=== PATIENT | female | born 1950 | race Caucasian/White ===

== ENCOUNTER 2017-06-10 15:59 | Emergency (ER) | payer MEDICARE, OTHER ==
--- NOTE | 2017-06-10 16:35 | ER Document Report ---
ED Medical Screen (RME) - General Chief Complaint: Leg Pain Stated Complaint: POSSIBLE BLOOD CLOT Time Seen by Provider: 06/10/17 16:28 Notes: 66-year-old female patient with essentially no medical history has been on airplane flights and car travel recently. She noticed a few days ago that her left proximal anterior lateral leg just below the knee and the lateral leg began hurting. She feels like the calf is swelling and there is some redness. Brief exam shows the calf to be quite soft, no tenderness to palpate deep into the calf posteriorly. Some tenderness to the left lateral calf and very tender proximally over the anterior medial tibial region. There is no erythema, no increased heat. We will plan to check lab work prior to ordering venous Doppler, as the exam would not suggest a DVT. I have greeted and performed a rapid initial assessment of this patient. A comprehensive ED assessment and evaluation of the patient, analysis of test results and completion of the medical decision making process will be conducted by additional ED providers. TRAVEL OUTSIDE OF THE [place] IN LAST 30 DAYS: No - Related Data Allergies/Adverse Reactions: No Known Allergies Allergy (Unverified 06/10/17 16:27) Past Medical History - Social History Chew tobacco use (# tins/day): No Frequency of alcohol use: None Drug Abuse: None Renal/ Medical History: Denies: Hx Peritoneal Dialysis Physical Exam - Vital signs Vitals: Temp Pulse Resp BP Pulse Ox 98.1 F 77 18 146/84 H 97 06/10/17 16:09 06/10/17 16:09 06/10/17 16:09 06/10/17 16:09 06/10/17 16:09 Course - Vital Signs Vital signs: Temp Pulse Resp BP Pulse Ox 98.1 F 77 18 146/84 H 97 06/10/17 16:09 06/10/17 16:09 06/10/17 16:06/10/17 16:06/10/17 16:09
[2017-06-10 17:02] LABS: ABSOLUTE EOSINOPHILS # (AUTO) 0.1 10^3/uL (0.0-0.6); ABSOLUTE LYMPHOCYTES (AUTO) 1.9 10^3/uL (0.5-4.7); ABSOLUTE MONOCYTES (AUTO) 0.5 10^3/uL (0.1-1.4); ABSOLUTE NEUT (AUTO) 3.7 10^3/uL (1.7-8.2); BASOPHILS % (AUTO) 0.4 % (0-2); EOSINOPHILS % (AUTO) 2.3 % (0-6); HEMATOCRIT 42.1 % (36.0-47.0); HEMOGLOBIN 14.3 g/dL (12.0-15.5); MEAN CORPUSCULAR HEMOGLOBIN 31.5 pg (27.0-33.4); MEAN CORPUSCULAR VOLUME 93 fl (80-97); MONOCYTES % (AUTO) 8.2 % (3-13); PLATELET COUNT 221 10^3/uL (150-450); RED BLOOD COUNT 4.54 10^6/uL (3.72-5.28); RED CELL DISTRIBUTION WIDTH 13.2 % (11.5-14.0); SEGMENTED NEUTROPHILS % (AUTO) 59.1 % (42-78); TOTAL CELLS COUNTED % (AUTO) 100 %; WHITE BLOOD COUNT 6.3 10^3/uL (4.0-10.5)
--- NOTE | 2017-06-10 17:05 | ER Document Report ---
ED General - General Mode of Arrival: Ambulatory Information source: Patient TRAVEL OUTSIDE OF THE [place] IN LAST 30 DAYS: No - HPI Onset: Other - tuesday Quality of pain: Achy Associated symptoms: None Exacerbated by: Walking Relieved by: Denies Similar symptoms previously: No Recently seen / treated by doctor: No <AUGUST GARCIA - Last Filed: 06/10/17 18:45> <JL FULTON - Last Filed: 06/10/17 20:46> - General Chief Complaint: Leg Pain Stated Complaint: POSSIBLE BLOOD CLOT Time Seen by Provider: 06/10/17 16:28 Notes: Patient presents to the emergency department with complaints of left lower leg, calf pain since Tuesday. Patient reports she took a trip to [place] and back to [place] last week. [address] Patient also reports she flew from [place] here this week. She denies history of DVTs. Denies history of PEs. Denies trauma. Complains of pain & redness to the left lower leg. No SOB, No chest pain. (AUGUST GARCIA) - Related Data Allergies/Adverse Reactions: No Known Allergies Allergy (Unverified 06/10/17 16:27) Past Medical History - General Information source: Patient - Social History Smoking Status: Unknown if Ever Smoked Chew tobacco use (# tins/day): No Frequency of alcohol use: None Drug Abuse: None Lives with: Family Family History: Reviewed & Not Pertinent Patient has suicidal ideation: No Patient has homicidal ideation: No Renal/ Medical History: Reports: Other - over active bladder. Denies: Hx Peritoneal Dialysis Past Surgical History: Reports: Hx Appendectomy, Hx Orthopedic Surgery, Hx Tubal Ligation <AUGUST GARCIA - Last Filed: 06/10/17 18:45> Review of Systems <AUGUST GARCIA - Last Filed: 06/10/17 18:45> <JL FULTON - Last Filed: 06/10/17 20:46> - Review of Systems Notes: Review HPI for review of systems., All other systems negative (AUGUST GARCIA) Physical Exam <AUGUST GARCIA - Last Filed: 06/10/17 18:45> <JL FULTON - Last Filed: 06/10/17 20:46> - Vital signs Vitals: Temp Pulse Resp BP Pulse Ox 98.1 F 77 18 146/84 H 97 06/10/17 16:09 06/10/17 16:09 06/10/17 16:09 06/10/17 16:09 06/10/17 16:09 - Notes Notes: PHYSICAL EXAMINATION: GENERAL: Well-appearing and in no acute distress HEAD: Atraumatic, normocephalic. EYES: Pupils equal round and reactive to light, extraocular movements intact, sclera anicteric, conjunctiva are normal. ENT: nares patent, oropharynx clear without exudates. Moist mucous membranes. NECK: Normal range of motion, supple without lymphadenopathy LUNGS: CTAB and equal. No wheezes rales or rhonchi. HEART: Regular rate and rhythm without murmurs ABDOMEN: Soft, no tenderness. No guarding, no rebound EXTREMITIES: Normal range of motion, no pitting edema. No cyanosis. +erythema, ttp, no warmth to LL Calf NEUROLOGICAL: Cranial nerves grossly intact. Normal sensory/motor exams. PSYCH: Normal mood, normal affect. SKIN: Warm, Dry, normal turgor, no rashes or lesions noted (AUGUST GARCIA) Course - Laboratory Result Diagrams: 06/10/17 16:40 06/10/17 16:40 <AUGUST GARCIA - Last Filed: 06/10/17 18:45> - Laboratory Result Diagrams: 06/10/17 16:40 06/10/17 16:40 <JL FULTON - Last Filed: 06/10/17 20:46> - Re-evaluation Re-evalutation: 06/10/17 18:53 Margy from special procedures doing doppler now. pt c/o hungry, po fluids and crackers provided 06/10/17 19:01 Report given to becky GARZA (AUGUST GARCIA) 06/10/17 20:46 Doppler reveals no SVT or DVT, superficial thrombosis in the superficial varicosity, spoke with, my attending Dr. Howell who agrees that warm packs and aspirin are treatment for this. Patient will not be placed on any other blood thinner. Patient has an appointment with her primary care provider in 2 days. ( JL FULTON) - Vital Signs Vital signs: Temp Pulse Resp BP Pulse Ox 98.1 F 77 11 L 132/72 H 99 06/10/17 16:09 06/10/17 16:09 06/10/17 19:39 06/10/17 19:39 06/10/17 19:39 - Laboratory Laboratory results interpreted by me: 06/10/17 06/10/17 16:40 16:40 D-Dimer 1.87 H Carbon Dioxide 31 H Calcium 10.7 H Discharge <AUGUST GARCIA - Last Filed: 06/10/17 18:45> <JL FULTON - Last Filed: 06/10/17 20:46> - Discharge Clinical Impression: Superficial thrombosis of left lower extremity Condition: Stable Disposition: HOME, SELF-CARE Additional Instructions: Return immediately for any new or worsening symptoms. Follow up with primary care provider, call tomorrow to make followup appointment. Please use a heating pack and take 324 mg of aspirin daily until you follow-up with your primary care provider.
[2017-06-10 17:11] LABS: INTERNATIONAL RATION (INR) 0.88; PROTHROMBIN TIME 12.4 SEC (11.4-15.4)
[2017-06-10 17:14] LABS: D-DIMER 1.87 ug/mL (0.00-0.50)
[2017-06-10 17:18] LABS: ALANINE AMINOTRANSFERASE 32 U/L (9-52); ALBUMIN 4.4 g/dL (3.5-5.0); ALKALINE PHOSPHATASE 63 U/L (38-126); ANION GAP 13 (5-19); ASPARTATE AMINO TRANSFERASE 23 U/L (14-36); BILIRUBIN,DIRECT 0.3 mg/dL (0.0-0.4); BILIRUBIN,TOTAL 0.6 mg/dL (0.2-1.3); BLOOD UREA NITROGEN 14 mg/dL (7-20); CALCIUM 10.7 mg/dL (8.4-10.2); CARBON DIOXIDE 31 mmol/L (22-30); CHLORIDE 101 mmol/L (98-107); GLUCOSE 94 mg/dL (75-110); POTASSIUM 4.3 mmol/L (3.6-5.0); SODIUM 144.7 mmol/L (137-145); TOTAL PROTEIN 7.5 g/dL (6.3-8.2)
--- NOTE | 2017-06-10 19:24 | RADIOLOGY REPORT (SQ) ---
EXAM DESCRIPTION: VENOUS UNILATERAL LOWER COMPLETED DATE/TIME: 06/10/2017 7:17 pm REASON FOR STUDY: calf pain, elevated d dimer COMPARISON: None. TECHNIQUE: Dynamic and static godinez scale and color images acquired of the left leg venous system. Se lected spectral images acquired with additional compression and augmentation maneuvers. The contralat eral common femoral vein and saphenofemoral junction were also imaged. Images stored on PACS. LIMITATIONS: None. FINDINGS: COMMON FEMORAL: Normal phasicity, compression and augmentation. No visualized echogenic ma terial on godinez scale. No defects on color images. FEMORAL: Normal compression and augmentation. No visualized echogenic material on godinez scale. No defe cts on color images. POPLITEAL: Normal compression, augmentation. No visualized echogenic material on godinez scale. No defec ts on color images. CALF VESSELS: Normal compression, augmentation. No visualized echogenic material on godinez scale. No de fects on color images. GSV and SSV: Normal compression, augmentation. No visualized echogenic material on godinez scale. No def ects on color images. ANY DEEP VENOUS INSUFFICIENCY: Not evaluated. ANY EVIDENCE OF POPLITEAL CYST: No. OTHER: Short segment thrombosis a superficial varicosity. CONTRALATERAL COMMON FEMORAL VEIN AND SAPHENOFEMORAL JUNCTION: Normal phasicity, compression and augmentation. No visualized echogenic material on godinez scale. No de fects on color images. IMPRESSION: NO EVIDENCE DVT OR SVT IN THE LEFT LEG. Short segment thrombosis in a superficial varicosity. TECHNICAL DOCUMENTATION: JOB ID: [id number] [employer]- All Rights Reserved Reading location - IP/workstation name: [email or web address]
[2017-06-10] MEDS ORDERED: ASPIRIN 325 MG TABLET PO ONE (20:26)
[2017-06-10 20:53] VITALS: BP 126/71
== END 2017-06-10 20:53 | disposition home or self-care (01) ==
LOC: ER 15:59
DX: I82.812 Embolism and thrombosis of superficial veins of left lower extremity (principal); I83.812 Varicose veins of left lower extremity with pain
CPT/HCPCS: 99284; 36415; 85025; 85610; 80053; 85379; 93971; A9270